=== PATIENT | male | born 1940 | race Caucasian/White ===

== ENCOUNTER 2020-03-17 08:58 | Day surgery (SDC) | payer MEDICARE ==
[2020-03-15 11:51] LABS: COVID AG,FIA SOURCE NASOPHARYNGEAL
[~2020-03-17] VITALS: Ht 170.2 cm; Wt 75.0 kg
[2020-03-17] MEDS ORDERED: RINGERS SOLUTION,LACTATED 500 ML IV ONE ×2 (09:30→09:34)
[2020-03-17] MEDS ORDERED: MOXIFLOXACIN HCL 0.5% 3 ML OPHTHALMIC SOLUTION ONE (09:34)
[2020-03-17] MEDS ORDERED: PHENYLEPHRINE HCL 2.5% 2 ML OPHTHALMIC SOLUTION ONE (09:34)
[2020-03-17] MEDS ORDERED: KETOROLAC TROMETHAMINE 0.5% 5 ML OPHTHALMIC SOLUTION ONE (09:34)
[2020-03-17] MEDS ORDERED: TROPICAMIDE 1% 2 ML OPHTHALMIC SOLUTION ONE (09:34)
[2020-03-17] MEDS: KETOROLAC TROMETHAMINE 0.5% 5 ML OPHTHALMIC SOLUTION OS SCH ×3 (10:03→10:22)
[2020-03-17] MEDS: MOXIFLOXACIN HCL 0.5% 3 ML OPHTHALMIC SOLUTION OS SCH ×3 (10:03→10:22)
[2020-03-17] MEDS: PHENYLEPHRINE HCL 2.5% 2 ML OPHTHALMIC SOLUTION OS SCH ×3 (10:03→10:22)
[2020-03-17] MEDS: TROPICAMIDE 1% 2 ML OPHTHALMIC SOLUTION OS SCH ×3 (10:03→10:22)
[2020-03-17] MEDS ORDERED: FentaNYL CITRATE-PF 100 MCG/2 ML VIAL IVP ONE (12:00)
[2020-03-17] MEDS ORDERED: MIDAZOLAM HCL 2 MG/2 ML VIAL IVP ONE (12:00)
[2020-03-17] MEDS ORDERED: HYALURONATE SOD/CHONDROITIN SOD 0.5 ML VIAL IO ONE (18:20)
[2020-03-17] MEDS ORDERED: HYALURONATE SODIUM 12 MG/ML 0.8 ML SYRINGE IO ONE (18:21)
[2020-03-17] MEDS ORDERED: EPINEPHrine 1:1,000 [1 MG/ML] AMP ONE (18:22)
[2020-03-17] MEDS ORDERED: LIDOCAINE/PF 1% 2 ML VIAL ONE (18:23)
[2020-03-17] MEDS ORDERED: POVIDONE-IODINE 10% 15 ML SOLUTION UD ONE (18:24)
[2020-03-17] MEDS ORDERED: TETRACAINE HCL/PF 0.5% 4 ML OPHTHALMIC SOLUTION ONE (18:24)
== END 2020-03-17 13:10 | disposition home or self-care (01) ==
LOC: SURGERY 08:58
PROVIDERS: ATTEND Ophthalmology
DX: E11.36 Type 2 diabetes mellitus with diabetic cataract (principal); H25.12 Age-related nuclear cataract, left eye; I10 Essential (primary) hypertension; I48.91 Unspecified atrial fibrillation; Z72.89 Other problems related to lifestyle; Z98.890 Other specified postprocedural states; Z79.899 Other long term (current) drug therapy; Z20.828 Contact with and (suspected) exposure to other viral communicable diseases
CPT/HCPCS: 66984; 87426; 93005; C9803; J0171; J2250; J3010; J3490 ×2; J7120; V2632